=== PATIENT | female | born 1955 | race Caucasian/White ===

== ENCOUNTER 2019-03-13 09:47 | Inpatient (IN) | payer BC ==
[~2019-03-13] VITALS: Ht 162.6 cm; Wt 74.8 kg
[2019-03-13] VITALS (10 sets, daily range): BP systolic 95–141; BP diastolic 47–75
[~2019-03-13 09:47] MED LIST: BENA40TA7 PO; MONT10TA34 PO; OLOP0.2S5 OP; OMEP20TA PO; PRAV20TA3 PO
[2019-03-13] MEDS ORDERED: ROPIVACAINE 0.5% (5MG/ML) 20ML AMPULE IJ ONE (10:40)
[2019-03-13] MEDS ORDERED: LIDOCAINE W/ EPINEPHRINE 2% INJ 20ML VIAL ONE (10:41)
[2019-03-13] MEDS ORDERED: CELECOXIB 100 MG CAP ONE ×2 (11:18→11:51)
[2019-03-13] MEDS ORDERED: PREGABALIN CAPSULE 75 MG CAP ONE (11:18)
[2019-03-13] MEDS ORDERED: ceFAZolin 1GM/50ML 100 ML IV ONE (11:19)
[2019-03-13] MEDS ORDERED: BUPIVACAINE W/ EPINEPH 0.25% INJ 50ML MDV ONE (11:24)
[2019-03-13] MEDS ORDERED: TRANEXAMIC ACID 20 ML ONE (11:24)
[2019-03-13] MEDS ORDERED: VANCOMYCIN HCL 1000 MG VL ONE (11:25)
[2019-03-13] MEDS ORDERED: KETOROLAC TROMETH 30 MG/ML 1ML VIAL ONE (11:26)
[2019-03-13] MEDS ORDERED: MORPHINE SULF(PF) 0.5MG/ML 10ML VIAL ONE ×2 (11:26→12:05)
[2019-03-13] MEDS ORDERED: ceFAZolin 1GM 2 GM in D5W 5% 100 ML IV ONE (11:30)
[2019-03-13] MEDS ORDERED: ACETAMINOPHEN IV 1000 MG/100ML (10MG/ML) IV ONE (11:30)
[2019-03-13] MEDS ORDERED: CELECOXIB 100 MG CAP PO ONE (11:30)
[2019-03-13] MEDS ORDERED: PREGABALIN CAPSULE 75 MG CAP PO ONE (11:30)
[2019-03-13] MEDS ORDERED: ACETAMINOPHEN IV 100 ML IV ONE (11:51)
[2019-03-13] MEDS ORDERED: MIDAZOLAM HCL 1MG/1ML-2 ML VIAL ONE ×2 (12:03→12:36)
[2019-03-13] MEDS ORDERED: METOCLOPRAMIDE HCL 5MG/ml INJ 2ml VIAL ONE (12:05)
[2019-03-13] MEDS ORDERED: diphenhdrAMINE HCL 50 MG/1 ML VL ONE (12:05)
[2019-03-13] MEDS ORDERED: TETRACAINE 1% INJ 2 ML VIAL IJ ONE (12:06)
[2019-03-13] MEDS ORDERED: LIDOCAINE 2% (LOCAL ANESTH.) PF 5ml SDV ONE (12:34)
[2019-03-13] MEDS ORDERED: PROPOFOL 10 MG/ML 20 ML IV ONE ×2 (12:35→13:33)
[2019-03-13] MEDS ORDERED: ONDANSETRON HCL 4 MG/2 ML VIAL IV PRN ×2 (13:15→14:30)
[2019-03-13] MEDS ORDERED: ePHEDrine SULFATE 50 MG/ML AMP IV PRN (13:15)
[2019-03-13] MEDS ORDERED: KETOROLAC TROMETH 30 MG/ML 1ML VIAL IV PRN (13:15)
[2019-03-13] MEDS ORDERED: diphenhdrAMINE HCL 50 MG/1 ML VL IV PRN (13:15)
[2019-03-13] MEDS ORDERED: ONDANSETRON HCL 4 MG/2 ML VIAL IV ONE (13:15)
[2019-03-13] MEDS ORDERED: NALOXONE HCL 0.4 MG/ML VIAL IV PRN ×2 (13:15)
[2019-03-13] MEDS ORDERED: HYDROmorphone HCL 2 MG/ML VL IV PRN (13:15)
[2019-03-13] MEDS ORDERED: BENAZEPRIL HCL 10 MG TAB PO SCH (14:00)
[2019-03-13] MEDS ORDERED: NITROGLYCERIN 0.4 MG SL TAB SL PRN (14:30)
[2019-03-13] MEDS ORDERED: MORPHINE SULF INJ 2 MG/ML SYRINGE 1ML IV PRN (14:30)
[2019-03-13] MEDS ORDERED: ACETAMINOPHEN 325 MG TAB PO PRN (14:30)
[2019-03-13] MEDS ORDERED: OMEPRAZOLE 20MG/10ML ORAL SUSP GT ONE (14:30)
[2019-03-13] MEDS: ceFAZolin 1GM/50ML 50 ML IV SCH ×2 (16:09→22:33)
[2019-03-13] MEDS: LACTATED RINGER'S 1,000 ML IV SCH (16:56)
[2019-03-13] MEDS: oxyCODONE ER 10 MG TAB PO SCH (22:00)
[2019-03-13] MEDS: DOCUSATE SOD 100 MG CAP PO SCH (22:00)
[2019-03-14] VITALS (19 sets, daily range): BP systolic 83–163; BP diastolic 40–92
[2019-03-14] MEDS: OXYCODONE W/ ACETAMINOPHEN 5/325MG TABLET PO PRN ×2 (01:01→15:40)
[2019-03-14] MEDS: LACTATED RINGER'S 1,000 ML IV SCH ×4 (03:17→19:21)
[2019-03-14] MEDS: ceFAZolin 1GM/50ML 50 ML IV SCH (04:22)
[2019-03-14] MEDS ORDERED: SODIUM CHLORIDE 0.9% 1,000 ML IV ONE (05:15)
[2019-03-14 06:58] LABS: Hematocrit 33.8 % (36.0-46.0); Hemoglobin 11.6 g/dL (12.2-16.2)
[2019-03-14 07:10] LABS: Albumin 2.7 g/dL (3.4-5.0); Calcium 7.7 mg/dL (8.5-10.1); Potassium 3.5 mmol/L (3.5-5.1)
[2019-03-14 07:13] LABS: Bilirubin, Total 0.4 mg/dL (0.2-1.0); Total Protein 5.4 g/dL (6.4-8.2)
[2019-03-14] MEDS: Ensure HIGH Protein Chocolate 8oz Bottle PO SCH ×3 (08:34→18:38)
[2019-03-14] MEDS: PRAVASTATIN SODIUM 20 MG TAB PO SCH (09:24)
[2019-03-14] MEDS: DOCUSATE SOD 100 MG CAP PO SCH ×2 (09:24→21:49)
[2019-03-14] MEDS: MONTELUKAST SODIUM 10 MG TAB PO SCH (09:25)
[2019-03-14] MEDS: ENOXAPARIN SOD 40 MG/0.4 ML SYRINGE SC SCH (09:25)
[2019-03-14] MEDS: oxyCODONE ER 10 MG TAB PO SCH ×2 (09:25→21:50)
[2019-03-14] MEDS: OMEPRAZOLE 20MG/10ML ORAL SUSP GT SCH (10:58)
[2019-03-14] MEDS ORDERED: ALBUTEROL SULF 2.5 MG/0.5ML(0.5%) NEB SOLN NEB PRN (11:30)
[2019-03-14] MEDS ORDERED: IPRATROPIUM BROM 0.5 MG/2.5ML INH SOL NEB PRN (11:30)
[2019-03-14] MEDS: KETOROLAC TROMETH 30 MG/ML 1ML VIAL IV SCH ×2 (11:42→18:38)
[2019-03-14] MEDS: BENAZEPRIL HCL 10 MG TAB PO SCH (14:00)
[2019-03-14] MEDS: hydrALAZINE HCL 20 MG/ML VL IV PRN (22:35)
[2019-03-15] MEDS: KETOROLAC TROMETH 30 MG/ML 1ML VIAL IV SCH ×4 (00:07→17:48)
[2019-03-15] MEDS: HYDROmorphone HCL 2 MG/ML VL IV PRN ×4 (01:52→15:03)
[2019-03-15] MEDS: LACTATED RINGER'S 1,000 ML IV SCH ×2 (05:15→11:30)
[2019-03-15 05:39] VITALS: BP 156/78
[2019-03-15 07:04] LABS: Hematocrit 34.4 % (36.0-46.0); Hemoglobin 11.9 g/dL (12.2-16.2)
[2019-03-15] MEDS: Ensure HIGH Protein Chocolate 8oz Bottle PO SCH ×3 (08:48→17:48)
[2019-03-15 09:00] VITALS: BP 176/82
[2019-03-15] MEDS: OMEPRAZOLE 20MG/10ML ORAL SUSP GT SCH (09:00)
[2019-03-15] MEDS: DOCUSATE SOD 100 MG CAP PO SCH (09:01)
[2019-03-15] MEDS: PRAVASTATIN SODIUM 20 MG TAB PO SCH (09:02)
[2019-03-15] MEDS: oxyCODONE ER 10 MG TAB PO SCH (09:02)
[2019-03-15] MEDS: MONTELUKAST SODIUM 10 MG TAB PO SCH (09:02)
[2019-03-15] MEDS: ENOXAPARIN SOD 40 MG/0.4 ML SYRINGE SC SCH (09:02)
[2019-03-15] MEDS: hydrALAZINE HCL 20 MG/ML VL IV PRN (09:03)
[2019-03-15] MEDS ORDERED: BISACODYL 10 MG RECT SUPP PR ONE (09:15)
[2019-03-15] MEDS ORDERED: POLYETHYLENE GLYCOL 17 GM PWDR PO ONE (10:00)
[2019-03-15] MEDS ORDERED: LACTULOSE 20Gm/30ML SOLN PO PRN (10:00)
[2019-03-15 12:45] VITALS: BP 159/83
[2019-03-15] MEDS: BENAZEPRIL HCL 10 MG TAB PO SCH (13:37)
[2019-03-15] MEDS: OXYCODONE W/ ACETAMINOPHEN 5/325MG TABLET PO PRN (13:38)
[2019-03-15] MEDS ORDERED: DOCUSATE SOD 100 MG CAP PO SCH (14:00)
[2019-03-15 16:54] VITALS: BP 145/80
[2019-03-15 17:00] VITALS: BP 145/80
[2019-03-16] MEDS ORDERED: POLYETHYLENE GLYCOL 17 GM PWDR PO PRN (10:00)
== END 2019-03-15 18:55 | DRG 470 ==
LOC: SUR 09:47 → CENTRAL 15:33
PROVIDERS: ADMIT Orthopaedic Surgery Adult Reconstructive Orthopaedic Surgery; ATTEND Orthopaedic Surgery Adult Reconstructive Orthopaedic Surgery
PROC: 0SRC0J9 Replacement of Right Knee Joint with Synthetic Substitute, Cemented, Open Approach (ICD-10-PCS; principal; 2019-03-13 12:06)
DX: M17.11 Unilateral primary osteoarthritis, right knee (principal); R63.4 Abnormal weight loss; I10 Essential (primary) hypertension; J44.9 Chronic obstructive pulmonary disease, unspecified; K21.9 Gastro-esophageal reflux disease without esophagitis; E78.5 Hyperlipidemia, unspecified; Z88.8 Allergy status to other drugs, medicaments and biological substances; Z88.5 Allergy status to narcotic agent; Z83.3 Family history of diabetes mellitus; Z82.49 Family history of ischemic heart disease and other diseases of the circulatory system; Z90.49 Acquired absence of other specified parts of digestive tract; Z68.28 Body mass index [BMI] 28.0-28.9, adult; Z82.3 Family history of stroke; Z91.018 Allergy to other foods; Z79.899 Other long term (current) drug therapy
CPT/HCPCS: 36415; 73560; 80053; 85014; 85018; 86850; 86900; 86901; 94762; C1713; G0378; J0131; J0690; J1885; J2001; J2250; J2405; J2704; J7060

== ENCOUNTER 2021-06-27 19:34 | Emergency (ER) | payer BC, OTHER ==
[~2021-06-27] VITALS: Ht 157.5 cm; Wt 90.7 kg
[~2021-06-27 19:34] MED LIST changes: -BENA40TA7 PO; +BENA40TA8 PO; +MONT-8 PO; -MONT10TA34 PO; +OLOP0.2S14 OP; -OLOP0.2S5 OP
[2021-06-27] MEDS ORDERED: KETOROLAC TROMETH 30 MG/ML 1ML VIAL IV ONE (20:00)
[2021-06-27] MEDS ORDERED: diazePAM 2 MG TAB PO ONE (20:00)
[2021-06-27] MEDS ORDERED: MORPHINE SULFATE 4 MG/ML SYR/VIAL IV ONE (20:15)
[2021-06-27 20:17] LABS: Basophils # (auto) 0.1 10 ^3/uL (0-0.2); Basophils % (auto) 0.7 % (0.0-2.0); Eosinophils # (auto) 0.2 10 ^3/uL (0-0.8); Eosinophils % (auto) 2.6 % (0.0-7.0); Hematocrit 38.6 % (36.0-46.0); Hemoglobin 13.1 g/dL (12.2-16.2); Lymphocytes # (auto) 2.4 10 ^3/uL (0.4-5.4); Lymphocytes % (auto) 26.5 % (10.0-50.0); Mean Corpuscular Hgb Conc. 33.9 g/dL (32.0-36.0); Mean Corpuscular Volume 94.6 fL (80.0-100.0); Monocytes # (auto) 0.6 10 ^3/uL (0-1.3); Monocytes % (auto) 6.6 % (0.0-12.0); Neutrophils # (auto) 5.8 10 ^3/uL (1.6-8.6); Neutrophils % (auto) 63.6 % (37.0-80.0); Red Blood Cells 4.08 10^6/uL (4.0-5.20); Red Cell Distribution Width 12.7 % (11.8-14.3); White Blood Cell 9.1 10^3/uL (4.4-10.8)
[2021-06-27 20:38] LABS: Albumin 3.2 g/dL (3.4-5.0); Anion Gap 10 (5-15); Blood Urea Nitrogen 28 mg/dL (7-18); Calcium 8.6 mg/dL (8.5-10.1); Carbon Dioxide 22 mmol/L (21-32); Chloride 108 mmol/L (98-107); Glucose 122 mg/dL (74-106); Potassium 3.7 mmol/L (3.5-5.1); Sodium 140 mmol/L (136-145)
[2021-06-27 20:40] LABS: Alanine Aminotransferase 56 U/L (13-56); Aspartate Aminotransferase 45 U/L (15-37); BUN/Creatinine Ratio 41.2; GFR African American 111 mL/min; GFR Non-African American 91 mL/min
[2021-06-27 20:48] LABS: Alkaline Phosphatase 58 U/L (45-117); Bilirubin, Total 0.6 mg/dL (0.2-1.0)
[2021-06-28 00:20] VITALS: BP 120/60
== END 2021-06-28 00:20 | disposition home or self-care (01) ==
LOC: EDBD 19:34 → ER 19:35
DX: M62.838 Other muscle spasm (principal); M54.2 Cervicalgia; R51.9 Headache, unspecified; M54.5 Low back pain; E78.5 Hyperlipidemia, unspecified; I10 Essential (primary) hypertension; Z88.6 Allergy status to analgesic agent; Z88.8 Allergy status to other drugs, medicaments and biological substances; Z90.89 Acquired absence of other organs; V43.52XA Car driver injured in collision with other type car in traffic accident, initial encounter; Y93.89 Activity, other specified; Y92.89 Other specified places as the place of occurrence of the external cause; Y99.8 Other external cause status
CPT/HCPCS: 36415; 70450; 71260; 72125; 72128; 74177; 80053; 84484; 85025; 96374; 99285; J2270; 93005

== ENCOUNTER 2024-07-26 07:57 | Day surgery (SDC) | payer BC, MEDICARE ==
[2024-07-26] VITALS (9 sets, daily range): BP systolic 126–155; BP diastolic 64–78; PULSE 50–60; RESP 12–14; O2SAT 93–97
[~2024-07-26] VITALS: Ht 162.6 cm; Wt 65.8 kg
[~2024-07-26 07:57] MED LIST changes: +BACL10TA PO; +BENA40TA71 PO; -BENA40TA8 PO; +FURO40TA4 PO; +IBUP-1455 PO; -OLOP0.2S14 OP; +POTA-228 PO
[2024-07-26] MEDS ORDERED: LIDOCAINE 2%HCL (LOCAL ANESTH.) INJ 20ML MDV ONE (09:21)
[2024-07-26] MEDS ORDERED: fentaNYL CITRATE 100 MCG/2 ML VL ONE (09:54)
[2024-07-26] MEDS ORDERED: MIDAZOLAM HCL 2MG/2ML 2ml VIAL (1mg/ml) ONE (09:54)
[2024-07-26] MEDS: MONTELUKAST SODIUM 10 MG TAB PO ONE (11:38)
[2024-07-26] MEDS: KETOROLAC TROMETH 30 MG/ML 1ML VIAL IV ONE (11:39)
== END 2024-07-26 13:47 | disposition home or self-care (01) ==
LOC: CATH 07:57
PROVIDERS: ATTEND Internal Medicine
DX: I49.5 Sick sinus syndrome (principal); R55 Syncope and collapse; I47.19 Other supraventricular tachycardia; I10 Essential (primary) hypertension; Z79.899 Other long term (current) drug therapy; Z88.8 Allergy status to other drugs, medicaments and biological substances; Z91.018 Allergy to other foods
CPT/HCPCS: 33285; C1764; J1885; J2250; J3010; J7040; 99152